=== PATIENT | male | born 1995 | race Caucasian/White ===

== ENCOUNTER 2016-06-14 22:41 | Emergency (ER) | payer SELFPAY ==
[2016-06-14 22:55] VITALS: TEMP 98; BMI 23.0
[2016-06-14] MEDS ORDERED: KETOROLAC TROMETHAMINE 10 MG TAB PO ONE (23:21)
--- NOTE | 2016-06-14 23:23 | EDPRACDOC ---
- General Information Chief Complaint: Chest Pain Stated Complaint: CHEST PAIN Time Seen by Provider: 06/14/16 22:56 Mode of Arrival: Car Home Medications: Home Medications Ketorolac Tromethamine [Toradol] 10 mg PO Q6H PRN #20 tab 06/15/16 Allergies/Adverse Reactions: Allergies Allergy/AdvReac Type Severity Reaction Status Date / Time No Known Allergies Allergy Verified 06/14/16 22:55 - History of Present Illness Onset: 15 MIN HPI: PATIENT PRESENTS C/O SHARP STABBING MIDSTERNAL CHEST PAIN THAT BEGAN WHILE TALKING ON THE PHONE. 4 EPISODES. LASTED SECONDS AT A TIME. NOW RESOLVED. NO FEVER. NO COUGH. STATES HE FELT DIZZY Chest Wall Injury Location: Reports: Sternal Tetanus Up To Date?: Yes Pain Quality: Reports: Sharp, Stabbing Pain Severity: Reports: Moderate Pain Worsens With: Reports: Nothing Shortness of Breath: None ED Past Medical History - History Reviewed Yes Nurses notes reviewed and agree except as marked Travel Outside of [place] in the Last 3 Months?: No - Patient Medical History Neurological History: Reports: Seizures - Social Medical History Smoking Status: Heavy tobacco smoker (5 or more cigarettes/day or daily pipe/ cigar) Lives With: Family Lives In: Home EDM Review of Systems - Review of Systems ROS Negative Except as Marked: Yes All systems reviewed and were negative except as marked Constitutional: No Symptoms Reported. negative: Fever, Chills, Weakness, Fatigue, Loss of Appetite Eyes: No Symptoms Reported. negative: Redness, Blurred Vision, Double Vision, Discharge, Pain, Light Sensitive, Photophobia Ears: No Symptoms Reported. negative: Pain, Hearing Loss, Drainage, Ear Pulling Throat: No Symptoms Reported. negative: Pain, Swelling Nose: No Symptoms Reported. negative: Congestion, Bleeding, Discharge, Injection, Swelling, Deformity, Ecchymosis, Tender, Abrasion, Laceration Mouth: No Symptoms Reported. negative: Pain, Drooling Respiratory: No Symptoms Reported. negative: Cough, Brassy Cough, Barky Cough, Shortness of Breath, Wheezing, Hemoptysis Cardiovascular: Chest Pain. negative: Cyanosis, Edema, Orthopnea, Palpitations , PND, Syncope, Skin Mottling Gastrointestinal: No Symptoms Reported. negative: Pain, Constipation, Nausea, Vomiting, Diarrhea, Melena, Formula Intolerance Genitourinary: No Symptoms Reported. negative: Dysuria, Hematuria, Frequency, Discharge, Bleeding, Testicular Pain, Neurological: No Symptoms Reported. negative: Headache, Dizziness, Seizure, Numbness, Weakness, Speech Difficulty, Gait Difficulty Musculoskeletal: No Symptoms Reported. negative: Neck, Chestwall, Ribs, Back, Shoulder, Arm, Elbow, Forearm, Wrist, Hand, Pelvis, Hip, Femur, Knee, Leg, Ankle , Foot Integumentary: No Symptoms Reported. negative: Itching, Rash, Bruising, Wound Allergic/Immunologic: No Symptoms Reported. negative: Hives, Itching Hematologic: No Symptoms Reported. negative: Lymphadenopathy, Easy Bruising, Easy Bleeding Endocrine: No Symptoms Reported. negative: Weight Gain, Weight Loss Psychiatric: No Symptoms Reported. negative: Anxiety, Depression, Hallucinations, Insomnia, Suicidal - Physical Exam Constitutional: Alert (Awake), No apparent distress Oriented to: Time, Person, Place Last recorded Vital Signs: Last Vital Signs Temp 98 F 06/14/16 22:51 Pulse 90 06/14/16 22:51 Resp 20 06/14/16 22:51 BP 154/73 06/14/16 22:51 Pulse Ox 95 06/14/16 22:51 Oxygen Pulse Oxygen Saturation 95 O2 Device Room Air Oxygen Flow Rate Fraction of Inspired Oxygen ( FIO2) - HEENT Head: Normal ( normocephalic) Eye Exam: Normal (PERRL, EOMI, Sclera white) Oropharynx: Normal (Pharynx:Moist without exudate,Gums-no swelling) Tympanic Membrane: Normal ENT EAC: Normal TMJ: Normal Nose: No Symptoms Reported (septum midline) Neck: Normal (FROM, trachea at midline) - Respiratory/Cardiovascular Respiratory: Normal - CTA (BBS clear to auscultation without adventitious sounds ) Cardiovascular: Normal (RRR without murmur, gallop or rub) - GI Auscultation: Normal (NABS) Palpation: Normal (Soft,No rebound or guarding, non distended) Tenderness: Non tender Martinez's Sign: Negative - Musculoskeletal Back: Normal (Non-Tender) Extremities: Normal (Normal tone, Pulses 2+ No cyanosis or edema, FROM) - Integumentary Skin: Normal, Warm, Dry Lymphatics: Normal (no adenopathy) - Neurologic Memory Impaired: Normal Motor Function: Normal (Normal tone, Pulses 2+ No cyanosis or edema, FROM) Cranial Nerve: Normal (CN II-X11 intact sensation, strength 5/5) Cerebellar: Normal Mood Description: Normal Perception: Normal - Differential Diagnosis Chest Wall Contusion, Other (PERICARDITIS) - Re-evaluation Re-evaluation 1 Re-evaluation Time: 01:40 (PATIENT CONTINUALLY REFUSES A URINE SAMPLE) - EKG EKG #1 EKG Time: 23:00 -: Yes EKG interpreted by me Rate: bpm: 78 [place]: RAD Rhythm: NSR Block: None Hypertrophy: None ST: Normal Decision Time to Discharge: 01:40 - Departure Yes I personally saw and evaluated the patient. Disposition: Home Condition: Good Final Diagnosis: Chest pain Qualifiers: Chest pain type: other chest pain Qualified Code(s): R07.89 - Other chest pain ; R07.8 - Other chest pain Instructions: Chest Pain (ED), Chest Wall Pain Education/Counseling Given To: Patient Education/Counseling Given Regarding: Diagnosis, Treatment, Prognosis, Follow Up Prescriptions: Ketorolac Tromethamine [Toradol] 10 mg PO Q6H PRN #20 tab PRN Reason: Pain
--- NOTE | 2016-06-14 23:43 | DIRPT ---
CLINICAL DATA: Sharp substernal chest pain EXAM: CHEST 2 VIEW COMPARISON: 08/27/2013 FINDINGS: Normal mediastinum and cardiac silhouette. Normal pulmonary vasculature. No evidence of effusion, infiltrate, or pneumothorax. No acute bony abnormality. IMPRESSION: Normal chest radiograph. Electronically Signed By: Willie Keller M.D. On: 06/14/2016 23:41
[2016-06-15 01:52] VITALS: BP 132/76; PULSE 84
== END 2016-06-15 01:50 | disposition home or self-care (01) ==
LOC: ED 22:41
DX: R07.89 Other chest pain (principal)
CPT/HCPCS: 36415; 71020; 85379; 93005; 99283; J3490